=== PATIENT | female | born 1950 | race Caucasian/White ===

== ENCOUNTER 2024-04-02 13:50 | Inpatient (IN) | payer MEDICARE, OTHER ==
[2024-04-03 15:46] VITALS: BMI 32.5
[2024-04-05 11:52] VITALS: BP 148/72; TEMP 97.6
== END 2024-04-05 12:43 | disposition home or self-care (01) | DRG 101 ==
LOC: EDBD 13:50 → ERS 13:50 → ERHOLD 18:26 → 2SE 04-03 14:19
PROVIDERS: ADMIT Family Medicine; ATTEND Internal Medicine
PROC: 4A00X4Z Measurement of Central Nervous Electrical Activity, External Approach (ICD-10-PCS; principal; 2024-04-03)
DX: G40.909 Epilepsy, unspecified, not intractable, without status epilepticus (principal); E87.20 Acidosis, unspecified; Z88.8 Allergy status to other drugs, medicaments and biological substances; Z79.899 Other long term (current) drug therapy; E78.5 Hyperlipidemia, unspecified; I10 Essential (primary) hypertension; Z90.710 Acquired absence of both cervix and uterus; Z98.890 Other specified postprocedural states; Z91.148 Patient's other noncompliance with medication regimen for other reason; E87.6 Hypokalemia
CPT/HCPCS: 36415; 36416; 70450; 70553; 71045; 80048; 80053; 80177; 80202; 80306; 80307; 81001; 82140; 82550; 82805; 83605; 83690; 83735; 84100; 84484; 85025; 85610; 85730; 87040; 93005; 95700; 95711; 95819; 96361; 96365; 96366; 96368; 96375; 96376; C9254; J0692; J0696; J1650; J1953; J2270; J2405; J3370; J3370-JW; J3490; J7050